=== PATIENT | female | born 1960 | race Caucasian/White ===

== ENCOUNTER 2017-06-04 02:32 | Emergency (ER) | payer OTHER ==
[~2017-06-04] VITALS: Ht 165.1 cm; Wt 118.7 kg
[2017-06-04] MEDS ORDERED: CIPRODEX OTIC7.5 ML LEFT EAR (03:04)
[2017-06-04 03:48] VITALS: BP 148/67
== END 2017-06-04 03:48 | disposition home or self-care (01) ==
LOC: EME 02:32
DX: H60.502 Unspecified acute noninfective otitis externa, left ear (principal)
CPT/HCPCS: 99281; 99283